=== PATIENT | male | born 1985 | race African-American/Black ===

== ENCOUNTER 2018-10-03 08:26 | Emergency (ER) | payer MEDICAID ==
[~2018-10-03] VITALS: Ht 177.8 cm; Wt 118.2 kg
[2018-10-03 08:36] VITALS: Ht 177.8 cm; Wt 118.2 kg
[2018-10-03] MEDS ORDERED: TYLENOL W/CODEI1 TAB PO (09:34)
[2018-10-03 10:16] VITALS: BP 169/100
== END 2018-10-03 10:17 | disposition home or self-care (01) ==
LOC: D.ER 08:26
DX: M79.18 Myalgia, other site (principal); Y04.2XXA Assault by strike against or bumped into by another person, initial encounter; Y93.89 Activity, other specified; Y92.019 Unspecified place in single-family (private) house as the place of occurrence of the external cause